=== PATIENT | female | born 1995 | race Caucasian/White ===

== ENCOUNTER 2019-04-04 15:55 | Outpatient (CLI) | payer MEDICAID ==
--- NOTE | 2019-04-04 17:01 | Non Stress Test Report ---
Non Stress Test Datetime Report Generated by CPN: 04/04/2019 17:01 DEMOGRAPHIC EGA NST: 40.6 INDICATION Indication for Study: Ordered by Provider Indication for Study (NST) Other: Routine NST from office due to holiday weekend VITAL SIGNS Temperature - NST: 98.7 Pulse - NST: 86 RESP - NST: 12 NBPSYS NST: 121 NBPDIA NST: 79 MONITORING Monitor Explained: Monitor Explained; Test Explained; Patient Verbalized Understanding Monitor Explained: Monitor Explained; Test Explained; Patient Verbalized Understanding Time on Monitor: 04/04/2019 16:08 Time off Monitor: 04/04/2019 16:59 NST Duration: 51 NST INTERVENTIONS NST Interventions: None Physician Notified NST: Dr. Brown BABY A: [id number] BABY A Movement : Present Contraction Frequency : none FHR Baseline : 145 Accelerations : 15X15 Decelerations : None Variability : Moderate 6-25bpm NST Review: Meets Criteria for Reactive NST NST Review and Verified By : Chip Armstrong RN NST Results: Reactive NST REPORT Report Trigger: Send Report
== END 2019-04-04 17:03 | disposition home or self-care (01) ==
LOC: LC 15:55
PROVIDERS: ATTEND Obstetrics & Gynecology
PROC: 4A1HXCZ Monitoring of Products of Conception, Cardiac Rate, External Approach (ICD-10-PCS; principal; 2019-04-04)
DX: Z34.93 Encounter for supervision of normal pregnancy, unspecified, third trimester (principal)
CPT/HCPCS: 59025

== ENCOUNTER 2019-04-08 20:50 | Inpatient (IN) | payer MEDICAID ==
[2019-04-08] MEDS ORDERED: RINGERS SOLUTION,LACTATED 300 ML IV ONE (21:11)
[2019-04-08] MEDS ORDERED: MAG HYDROX/AL HYDROX/SIMETH SUSP 30 ML UDCUP PO PRN (21:11)
[2019-04-08] MEDS ORDERED: ZOLPIDEM TARTRATE 5 MG TABLET PO PRN (21:11)
[2019-04-08] MEDS ORDERED: ACETAMINOPHEN 325 MG TABLET PO PRN (21:11)
[2019-04-08] MEDS ORDERED: DINOPROSTONE 10 MG VAGINAL INSERT.SR PV ONE (21:11)
[2019-04-08] MEDS: RINGERS SOLUTION,LACTATED 1,000 ML IV PRN (21:40)
[2019-04-08] MEDS ORDERED: DINOPROSTONE 10 MG VAGINAL INSERT.SR ONE (21:45)
[2019-04-08 21:56] LABS: ABSOLUTE EOSINOPHILS # (AUTO) 0.1 10^3/uL (0.0-0.6); ABSOLUTE MONOCYTES (AUTO) 0.7 10^3/uL (0.1-1.4); ABSOLUTE NEUT (AUTO) 7.1 10^3/uL (1.7-8.2); BASOPHILS % (AUTO) 0.2 % (0-2); EOSINOPHILS % (AUTO) 0.9 % (0-6); HEMATOCRIT 36.4 % (36.0-47.0); HEMOGLOBIN 12.4 g/dL (12.0-15.5); LYMPHOCYTES % (AUTO) 20.5 % (13-45); MEAN CORPUSCULAR HEMOGLOBIN 28.5 pg (27.0-33.4); MEAN CORPUSCULAR VOLUME 84 fl (80-97); MONOCYTES % (AUTO) 6.8 % (3-13); PLATELET COUNT 149 10^3/uL (150-450); RED BLOOD COUNT 4.34 10^6/uL (3.72-5.28); SEGMENTED NEUTROPHILS % (AUTO) 71.6 % (42-78); TOTAL CELLS COUNTED % (AUTO) 100 %
[2019-04-08 21:57] LABS: APPEARANCE,URINE SLIGHTLY-CLOUDY; BILIRUBIN,URINE NEGATIVE (NEGATIVE); COLOR,URINE YELLOW; GLUCOSE, URINE NEGATIVE (NEGATIVE); KETONES,URINE NEGATIVE (NEGATIVE); LEUKOCYTE ESTERASE,URINE TRACE (NEGATIVE); NITRITE,URINE NEGATIVE (NEGATIVE); PROTEIN,URINE NEGATIVE (NEGATIVE); URINE SPECIFIC GRAVITY 1.015; UROBILINOGEN,URINE NEGATIVE mg/dL (<2.0)
[2019-04-08 22:19] LABS: URINE AMPHETAMINES SCREEN NEGATIVE; URINE BARBITURATES SCREEN NEGATIVE; URINE BENZODIAZEPINES SCREEN NEGATIVE; URINE COCAINE SCREEN NEGATIVE; URINE MARIJUANA (THC) SCREEN NEGATIVE; URINE METHADONE SCREEN NEGATIVE; URINE PHENCYCLIDINE SCREEN NEGATIVE
[2019-04-09] MEDS ORDERED: ZOLPIDEM TARTRATE 5 MG TABLET ONE (01:57)
[2019-04-09] MEDS: RINGERS SOLUTION,LACTATED 1,000 ML IV PRN ×3 (01:59→23:43)
[2019-04-09] MEDS: ZOLPIDEM TARTRATE 5 MG TABLET PO SCH (04:09)
[2019-04-09] MEDS ORDERED: OXYTOCIN/NORMAL SALINE 20 UNIT/1,000 ML RTUINJ IV PRN (06:01)
[2019-04-09] MEDS ORDERED: OXYTOCIN/NORMAL SALINE 20 UNIT/1,000 ML RTUINJ ONE (06:02)
[2019-04-09] MEDS ORDERED: OXYTOCIN 10 UNIT/ML VIAL ONE (07:24)
[2019-04-09] MEDS ORDERED: LIDOCAINE 1% INJ-PF (10 MG/ML) 30 ML SDV ONE (07:24)
[2019-04-09] MEDS ORDERED: MISOPROSTOL 0.2 MG TABLET ONE (07:24)
[2019-04-09] MEDS ORDERED: PHENYLEPHRINE HCL INJ/PF 10 MG/1 ML SDV ONE (12:33)
[2019-04-09] MEDS ORDERED: EPHEDRINE SULFATE INJ 50 MG/1 ML AMPULE ONE (12:33)
[2019-04-09] MEDS ORDERED: FENTANYL CITRATE INJ/PF 100 MCG/2 ML AMPUL ONE (12:33)
[2019-04-09] MEDS ORDERED: FENTANYL/BUPIVACAINE/NS/PF 300 MCG/150 ML RTUINJ EPI ONE ×2 (12:34→23:39)
[2019-04-09] MEDS ORDERED: BUPIVACAINE HCL 0.25 % INJ/PF (2.5 MG/1 ML) 30 ML VIAL ONE (12:34)
--- NOTE | 2019-04-09 13:57 | Admission Physical ---
Datetime Report Generated by CPN: 04/09/2019 13:57 CURRENT ADMISSION Hx Assessment: The History has been Reviewed and is Current Indication for Induction: PROM Admit Impression : Postterm, Intrauterine ; No Active Labor ALLERGIES Medication Allergies: No Medication Allergies: No Known Allergies (04/08/2019) Latex: Unknown OBSTETRICAL HISTORY EDC: 03/29/2019 00:00 : 1 Para: 0 Term: 0 : 0 SAB: 0 IAB: 0 Ectopic: 0 Livin Cesareans: 0 VBACs: 0 Multiple Births: 0 Gestational Diabetes: No Rh Sensitization: No Incompetent Cervix: No CLAUDINE: No Infertility: No ART Treatment: No Uterine Anomaly: No IUGR: No Hx Previous C/S: No Macrosomia: No Hx Loss/Stillborn: No PIH: No Hx : No Placenta Previa/Abruption: No Depression/PP Depression: No PTL/PROM: No Post Hemorrhage: No Current Procedures: Ultrasound Obstetrical History Comments: G1: current SEE RECORDS Alcohol: No Marijuana : No Cocaine: No Other Illicit Drugs: No Cigarettes: Former Smoker. [id number] MEDICAL HISTORY Diabetes: No Blood Transfusion: No Pulmonary Disease (Asthma, TB): No Breast Disease: No Hypertension: No Hearing Care Practitioner Surgery: No Heart Disease: No Hosp/Surgery: No Autoimmune Disorder: No Anesthetic Complications: No Kidney Disease: No Abnormal Pap Smear: No Neuro/Epilepsy: No Psychiatric Disorders: No Other Medical Diseases: No Hepatitis/Liver Disease: No Significant Family History: No Varicosities/Phlebitis: No Trauma/Violence : No Thyroid Dysfunction: No INFECTIOUS HISTORY Gonorrhea: No Genital Herpes: No Chlamydia: Yes Tuberculosis: No Syphilis: No Hepatitis: No HIV/AIDS Exposure: No Rash or Viral Illness: No HPV: No Infectious History Comments: chlamydia test to cure 09/2018 PHYSICAL EXAM General: Normal HEENT: Deferred Neurologic: Normal Thyroid: Normal Heart: Normal Lungs: Normal Breast: Deferred Back: Normal Abdomen: Normal Genitourinary Exam: Deferred Extremities: Normal DTRs: Normal Pelvic Type: Adequate Physical Exam Comments: O neg Chlamydia 08/27 41+4 weeks GBS neg FETUS A Monitoring: External US Variability: Moderate 6-25bpm FHR Category: Category I Admit Comment: Admitted to IOL, Cat 1 strip, irreg uc's, comfortable with epidural Anticipate PLANS FOR LABOR AND DELIVERY Labor and Delivery: None Pain Management: Epidural Feeding Preference: Both Benefit of Breast Feed Discussed: Yes Circumcision: N/A INFORMED CONSENT Assignment: Pat Lindsey De Leon MD Signature: with User ID: [email or web address] : with User ID: [email or web address]
[2019-04-09] MEDS ORDERED: ACETAMINOPHEN 325 MG TABLET ONE (17:58)
[2019-04-09] MEDS ORDERED: DIPHENHYDRAMINE HCL 50 MG/ML VIAL ONE (22:14)
[2019-04-10] MEDS ORDERED: AMPICILLIN SOD INJ 2 GM VIAL ONE (03:29)
[2019-04-10] MEDS ORDERED: AMPICILLIN SODIUM 2 GM in NORMAL SALINE 100 ML IV ONE (04:30)
[2019-04-10] MEDS ORDERED: DIPHENHYDRAMINE HCL 50 MG/ML VIAL IV ONE (04:30)
[2019-04-10] MEDS ORDERED: OXYTOCIN/NORMAL SALINE 20 UNIT/1,000 ML RTUINJ ONE (05:02)
[2019-04-10] MEDS ORDERED: ACETAMINOPHEN 325 MG TABLET ONE (05:26)
[2019-04-10] MEDS ORDERED: ACETAMINOPHEN 325 MG TABLET PO ONE (06:00)
[2019-04-10] MEDS ORDERED: DIPH/PERTUSS(ACELL)/TETANUS VAC/PF 0.5 ML SYR (>=10YO) IM PRN (07:24)
[2019-04-10] MEDS ORDERED: OXYTOCIN/NORMAL SALINE 20 UNIT/1,000 ML RTUINJ IV PRN (07:24)
[2019-04-10] MEDS ORDERED: ZOLPIDEM TARTRATE 5 MG TABLET PO PRN (07:24)
[2019-04-10] MEDS ORDERED: ACETAMINOPHEN WITH CODEINE #3 TABLET PO PRN ×2 (07:24)
[2019-04-10] MEDS ORDERED: DIBUCAINE 1% OINTMENT 56 GM TP PRN (07:24)
[2019-04-10] MEDS ORDERED: BENZOCAINE/MENTHOL AEROSOL SPRAY 56 ML TOP PRN (07:24)
[2019-04-10] MEDS ORDERED: AMPICILLIN SODIUM 1 GM in NORMAL SALINE 50 ML IV SCH (08:00)
[2019-04-10] MEDS: ZOLPIDEM TARTRATE 5 MG TABLET PO SCH (08:43)
--- NOTE | 2019-04-10 09:18 | Delivery Summary ---
Del Sum A-C Datetime Report Generated by CPN: 04/10/2019 09:18 DELIVERY PERSONNEL DELIVERY PERSONNEL: [id number] Delivery Doctor:: Pat De Leon MD Labor and Delivery Nurse:: Teresita Hwang RNwall worker Nurse:: Rosmery Plaza RN Nursery Nurse:: Maria Luisa Barroso RN Denture Finisher/BRAKE MACHINE OPERATOR: Sandra Banks, ST MATERNAL INFORMATION Delivery Anesthesia: Epidural Medications After Delivery: Pitocin Bolus-Please Comment; Cytotec 1000mcg Per Rectum/Vagina Meds After Delivery Comment: pitocin 20 units in 1000 ml NSS iv bolus Estimated Blood Loss (ml): 300 Maternal Complications: Maternal Fever (Annotations: Data stored by N on behalf of user) Provider Comments: of a viable female at 0649 with an JACKELIN presentation; APGARS 8, 9; first degree right vaginal and bileratal firts degree periurethral lacs LABOR SUMMARY EDC: 03/29/2019 00:00 No. Babies in Womb: 1 Attempted: No Labor Anesthesia: Epidural LABOR INFORMATION Reason for Induction: Postterm Onset of Labor: 04/09/2019 09:55 Complete Dilatation: 04/10/2019 05:18 Oxytocin: Induction Group B Beta Strep: Negative Antibiotics # of Doses: 1 Antibiotics Time of Last Dose: 341 Name of Antibiotic Given: Ampicillin 2 grams IVP Steroids Given: None Reason Steroids Not Administered: Not Applicable MEMBRANES Membranes Rupture Method: Spontaneous Rupture of Membranes: 04/09/2019 09:55 Length of Rupture (hr): 20.90 Amniotic Fluid Color: Clear Amniotic Fluid Amount: Small Amniotic Fluid Odor: Normal STAGES OF LABOR Stage 1 hr: 19 Stage 1 min: 23 Stage 2 hr: 1 Stage 2 min: 31 Stage 3 hr: 0 Stage 3 min: 17 Total Time in Labor hr: 21 Total Time in Labor min: 11 VAGINAL DELIVERY Episiotomy: None Laceration #1: Vaginal Laceration Extension #1: First Degree Laceration #2: Periurethral Laceration Extension #2: First Degree Laceration #3: Periurethral Laceration Extension #3: First Degree Laceration Repair: Yes Laceration Repair Note: All (3) lacs repaired with 3-0 chromic Sponge Count Correct: Yes Sharps Count Correct: N/A CSECTION DELIVERY Primary Indication: N/A Secondary Indication: N/A CSection Incidence: N/A Labor: N/A Elective: N/A CSection Incision: N/A BABY A INFORMATION Infant Delivery Date/Time: 04/10/2019 06:49 Method of Delivery: Vaginal Born in Route : No : N/A Forceps: N/A Vacuum Extraction: N/A Shoulder Dystocia : No PRESENTATION/POSITION BABY A Presentation: Cephalic Cephalic Presentation: Vertex Vertex Position: Right Occipital Anterior Breech Presentation: N/A PLACENTA INFORMATION BABY A Placenta Delivery Time : 04/10/2019 07:06 Placenta Method of Delivery: Spontaneous Placenta Status: Delivered SCORES BABY A Heart Rate 1 min: >100 bpm Resp Effort 1 min: Good Cry Reflex Irritability 1 min: Cough or Sneeze or Pulls Away Muscle Tone 1 min: Active Motion Color 1 min: Blue/Pale Resuscitation Effort 1 min: Tactile Stimulation SCORE 1 MIN: 8 Heart Rate 5 min: >100 bpm Resp Effort 5 min: Good Cry Reflex Irritability 5 min: Cough or Sneeze or Pulls Away Muscle Tone 5 min: Active Motion Color 5 min: Body [place], Extremities Blue Resuscitation Effort 5 min: Tactile Stimulation SCORE 5 MIN: 9 INFORMATION BABY A Gestational Age at Delivery: 41.5 Gestational Status: Late Term- 41- 41.6 Weeks Outcome : Liveborn Condition : Stable Infant Sex: Female IDENTIFICATION BABY A Infant Verification Date/Time: 04/10/2019 07:22 ID Band Number: [id number] Mother's Name Verified: Yes Infant RN Verifying : B Baidy RN/A [place] RN WEIGHT/LENGTH BABY A Infant Birthweight (gm): 4017 Infant Weight (lb): 8 Weight (oz): 14 Infant Length (in): 21.00 Length (cm): 53.34 CORD INFORMATION BABY A No. Cord Vessels: 3 Nuchal Cord : N/A Cord Blood Taken: N/A Infant Suction: Mouth; Nose ASSESSMENT BABY A Infant Complications: Multiple Variable Decels Physical Findings at Delivery: Caput Succedaneum Infant Respirations: Appears Normal Skin to Skin: Yes Hand Riveter/ALS Called : No Care By: RN Chio Transferred To: Remains with Mother BABY B INFORMATION : N/A SIGNATURES Signature: with User ID: [email or web address]
[2019-04-10] MEDS: FERROUS SULFATE 325 MG TABLET PO SCH ×2 (09:50→17:33)
[2019-04-10] MEDS: PRENATAL VITAMIN W DHA CAPSULE PO SCH (09:50)
[2019-04-10] MEDS: SENNOSIDES/DOCUSATE 8.6-50 MG 1 EACH TABLET PO SCH (09:50)
[2019-04-10] MEDS: DOCUSATE SODIUM 100 MG CAPSULE PO SCH ×2 (09:50→17:33)
[2019-04-10] MEDS: IBUPROFEN 800 MG TABLET PO SCH ×2 (14:23→22:17)
[2019-04-11] MEDS: IBUPROFEN 800 MG TABLET PO SCH ×3 (05:12→21:40)
[2019-04-11 05:48] LABS: MEAN CORPUSCULAR HEMOGLOBIN 28.5 pg (27.0-33.4); MEAN CORPUSCULAR HGB CONC 33.9 g/dL (32.0-36.0); MEAN CORPUSCULAR VOLUME 84 fl (80-97); PLATELET COUNT 103 10^3/uL (150-450); RED CELL DISTRIBUTION WIDTH 14.1 % (11.5-14.0); WHITE BLOOD COUNT 10.8 10^3/uL (4.0-10.5)
[2019-04-11 05:53] LABS: HEMATOCRIT 26.9 % (36.0-47.0); HEMOGLOBIN 9.1 g/dL (12.0-15.5)
[2019-04-11] MEDS: FERROUS SULFATE 325 MG TABLET PO SCH ×2 (09:27→17:24)
[2019-04-11] MEDS: PRENATAL VITAMIN W DHA CAPSULE PO SCH (09:27)
[2019-04-11] MEDS: SENNOSIDES/DOCUSATE 8.6-50 MG 1 EACH TABLET PO SCH (09:27)
[2019-04-11] MEDS: DOCUSATE SODIUM 100 MG CAPSULE PO SCH ×2 (09:27→17:24)
--- NOTE | 2019-04-11 10:21 | PDOC PROGRESS REPORT ---
Subjective-OB Progress Note for:: 04/11/19 Subjective: Doing well, alot of family in room, no c/o, breast/bottle feeding Physical Exam (OB) Vital Signs: Temp Pulse Resp BP Pulse Ox 97.9 F 77 18 111/65 100 04/10/19 19:25 04/10/19 19:25 04/10/19 19:25 04/10/19 19:25 04/10/19 19:25 Intake & Output 04/10/19 04/11/19 04/12/19 06:59 06:59 06:59 Intake Total 2838 450 Balance 2838 450 - PIH/Pre-Eclampsia DTR's: 2 + Clonus: Negative Headache: Absent Epigastric Pain: No Visual Changes: No - Lochia Lochia Amount: Scant < 10 ml Lochia Color: Rubra/Red - Abdomen Description: Soft, Round Hernia Present: No Fundal Description: Firm, Midline Fundal Height: u/u - u/2 Objective-Diagnostic Laboratory: 04/11/19 05:30 04/11/19 05:30 WBC 10.8 H RBC 3.20 L Hgb 9.1 L D Hct 26.9 L MCV 84 MCH 28.5 MCHC 33.9 RDW 14.1 H Plt Count 103 L Assessment and Plan(PN) - Assessment and Plan (1) Delivery normal Is this a current diagnosis for this admission?: Yes (2) Anemia Qualifiers: Other causes of anemia: acute posthemorrhagic Is this a current diagnosis for this admission?: Yes - Time Spent with Patient Time with patient: Less than 15 minutes Medications reviewed and adjusted accordingly: Yes - Disposition Anticipated Discharge: Home Within: within 24 hours
[2019-04-12] MEDS: IBUPROFEN 800 MG TABLET PO SCH ×2 (05:11→13:32)
[2019-04-12 08:39] VITALS: BP 119/72
--- NOTE | 2019-04-12 09:11 | PDOC DISCHARGE SUMMARY ---
Final Diagnosis Discharge Date: 04/12/19 - Final Diagnosis (1) Delivery normal Is this a current diagnosis for this admission?: Yes Discharge Data - Discharge Medication Home Medications: Pnv No.95/Ferrous Fum/Folic AC [ Multivitamin Tablet] 1 tab PO DAILY 04/04/19 Acetaminophen [Tylenol Extra Strength 500 mg Tablet] 1 tab PO Q8 PRN 04/08/19 Reason(s) for Admission: Induction of Labor, PROM Procedures: NST Intrapartum Procedure(s): Spontaneous Vaginal Delivery Complication(s): Laceration-Vaginal, Laceration-Periurethral Laceration-Degree: 1st - Diagnosis Test Laboratory: Temp Pulse Resp BP Pulse Ox 98.2 F 84 16 119/72 100 04/12/19 08:37 04/12/19 08:37 04/12/19 08:37 04/12/19 08:37 04/12/19 08:37 04/08/19 04/08/19 04/11/19 21:04 21:31 05:30 RBC 4.34 3.20 L Hgb 12.4 9.1 L D Hct 36.4 26.9 L Urine Opiates Screen NEGATIVE - Discharge information/Instructions Discharge Activity: Balance Activity w/Rest, Pelvic Rest Discharge Diet: Regular Disposition: HOME, SELF-CARE Follow up with: [facility] in: 4, Weeks
[2019-04-12] MEDS: FERROUS SULFATE 325 MG TABLET PO SCH ×2 (09:28→17:15)
[2019-04-12] MEDS: DOCUSATE SODIUM 100 MG CAPSULE PO SCH ×2 (09:28→17:15)
[2019-04-12] MEDS: SENNOSIDES/DOCUSATE 8.6-50 MG 1 EACH TABLET PO SCH (09:28)
[2019-04-12] MEDS: PRENATAL VITAMIN W DHA CAPSULE PO SCH (09:28)
[2019-04-12] MEDS ORDERED: DIPH/PERTUSS(ACELL)/TETANUS VAC/PF 0.5 ML SYR (>=10YO) IM PRN (14:00)
[2019-04-12] MEDS ORDERED: MEASLES,MUMPS&RUBELLA VACC/PF 0.5 ML VIAL SUBCUT ONE (19:00)
== END 2019-04-12 18:55 | disposition home or self-care (01) | DRG 806 ==
LOC: LR 20:50 → 2S 04-10 09:06
PROVIDERS: ADMIT Obstetrics & Gynecology; ATTEND Obstetrics & Gynecology
PROC: 10E0XZZ Delivery of Products of Conception, External Approach (ICD-10-PCS; principal; 2019-04-10)
PROC: 0HQ9XZZ Repair Perineum Skin, External Approach (ICD-10-PCS; 2019-04-10)
PROC: 3E0234Z Introduction of Serum, Toxoid and Vaccine into Muscle, Percutaneous Approach (ICD-10-PCS; 2019-04-12)
DX: O48.0 Post-term pregnancy (principal); O75.2 Pyrexia during labor, not elsewhere classified; Z37.0 Single live birth; O76 Abnormality in fetal heart rate and rhythm complicating labor and delivery; O70.0 First degree perineal laceration during delivery; Z3A.41 41 weeks gestation of pregnancy; Z23 Encounter for immunization
CPT/HCPCS: 36415; 80307; 81005; 85025; 85027; 86592; 86850; 86870; 86900; 86901; 88307; 90707; 94760; J0290; J1200; J2370; J2590; J3010; J3490; J7050